=== PATIENT | male | born 1955 | race Two or more races ===

== ENCOUNTER → 2017-10-16 | Outpatient (CLI) | payer MEDICARE, BC ==
[2017-10-16 10:06] LABS: Basophils # (A) 0.1 k/uL (0-0.2); Basophils % (A) 1 %; Eosinophils # (A) 0.4 k/uL (0-0.7); Eosinophils % (A) 3 %; HCT 48.3 % (39.0-53.0); HGB 16.1 gm/dL (13.0-17.5); Lymphocytes # (A) 1.6 k/uL (1.0-4.8); Lymphocytes % (A) 12 %; MCH 33.3 pg (25.0-35.0); MCHC 33.4 g/dL (31.0-37.0); MCV 99.5 fL (80.0-100.0); Mean Platelet Volume 7.2; Monocytes # (A) 0.7 k/uL (0-1.0); Monocytes % (A) 5 %; Neutrophils # (A) 10.4 k/uL (1.3-7.7); Neutrophils % (A) 78 %; Platelet Count 240 k/uL (150-450); RBC 4.85 m/uL (4.30-5.90); RDW 14.5 % (11.5-15.5); WBC 13.4 k/uL (3.8-10.6)
[2017-10-16 10:23] LABS: Anion Gap 13 mmol/L; Blood Urea Nitrogen 11 mg/dL (9-20); Calcium 9.4 mg/dL (8.4-10.2); Carbon Dioxide 23 mmol/L (22-30); Chloride 107 mmol/L (98-107); Glucose 110 mg/dL (74-99); Potassium 4.2 mmol/L (3.5-5.1); Sodium 143 mmol/L (137-145)
== END | disposition home or self-care (01) ==
LOC: LABPAT 09:18
PROVIDERS: ATTEND Urology
DX: Z01.812 Encounter for preprocedural laboratory examination (principal); I10 Essential (primary) hypertension; N21.0 Calculus in bladder; R35.0 Frequency of micturition; Z79.899 Other long term (current) drug therapy
CPT/HCPCS: 36415; 80048; 85025; 87077; 87086; 87186

== ENCOUNTER 2017-10-23 09:05 | Day surgery (SDC) | payer MEDICARE, BC ==
[2017-10-17 12:52] VITALS: BMI 18.6
[~2017-10-23 09:05] MED LIST: AMPICILLIN 2,000 MG in SODIUM CHLORIDE 0.9% 100 ML IVPB STA; DEXAMETHASONE SOD PHOSPHATE 10 MG/ML 1 ML VIAL IV ONE; HYDROmorphone 0.5 MG/0.5 ML SYRINGE IVP PRN; LACTATED RINGERS 1,000 ML IV SCH; ONDANSETRON 4 MG/2 ML VIAL IVP ONE
[2017-10-23 09:41] VITALS: RESP 16
[2017-10-23] MEDS ORDERED: GENTAMICIN 80 MG in SODIUM CHLORIDE 0.9% 100 ML IVPB ONE (10:00)
[2017-10-23] MEDS ORDERED: LIDOCAINE 1% 20 ML VIAL (10MG/ML) FOR IV START INTRADERMA ONE (10:03)
[2017-10-23] MEDS ORDERED: ePHEDrine SULFATE/0.9% NACL/PF 50 MG/5 ML SYRINGE IV ONE (11:16)
[2017-10-23] MEDS ORDERED: LIDOCAINE 1% INJ 10MG/ML (20 ML MDV) ONE (11:16)
[2017-10-23] MEDS ORDERED: PROPOFOL 10 MG/ML 20 ML VIAL IV ONE (11:16)
[2017-10-23] MEDS ORDERED: MIDAZOLAM 2 MG/2 ML VIAL ONE (11:16)
[2017-10-23] MEDS ORDERED: fentaNYL (PF) 50 MCG/ML 2 ML AMP ONE (11:16)
[2017-10-23 12:09] VITALS: TEMP 97.7
[2017-10-23 13:12] VITALS: BP 149/77; PULSE 62
--- NOTE | 2017-10-23 16:46 | P.OP ---
Date of Procedure: 10/23/17 Preoperative Diagnosis: Bladder calculi Postoperative Diagnosis: Same Procedure(s) Performed: Cystoscopy with removal of bladder calculi Anesthesia: TESSY Surgeon: Jed Hahn Estimated Blood Loss (ml): 0 IV fluids (ml): 300 Pathology: other (Bladder calculi, sent for chemical analysis) Condition: stable Disposition: PACU Indications for Procedure: He is a 62-year-old male with multiple sclerosis. Recent renal ultrasound shows an echogenic structure within the bladder. Urodynamic study showed some uninhibiited contractions, and cystoscopy confirmed the presence of bladder calculi. He will undergo cystolithotripsy, and may benefit from resumption of antimuscarinic therapy following surgery. Operative Findings: Multiple small bladder calculi. Description of Procedure: The patient was taken to the operating room and placed in the dorsolithotomy position, with legs supported in Woo stirrups. The external genitalia was prepped and draped sterilely. The 30 lens was used to introduce the 19-Albanian Stortz cystoscopic sheath through the urethra and into the bladder under direct vision. The prostatic urethra showed no evidence of prostatic obstruction. The bladder was examined in its entirety. Both ureteral orifices were of normal anatomic location and configuration. No tumors were seen. Upon initially entering the bladder, the urine was noted to be quite cloudy. The bladder was filled and drained several times for irrigation. Once visualization was improved, multiple small bladder calculi were identified. These appeared to be struvite in composition. The bladder was filled and the beak of the cystoscope was advanced up to a calculus. With drainage, each calculus was removed from the bladder without the need for an Ellik evacuator. Once this was completed, the bladder was emptied and the cystoscope removed. The patient tolerated the procedure well was taken to the recovery room in stable condition.
[2017-10-24] MEDS ORDERED: ceFAZolin IN SWFI 2 GM/20 ML SYRINGE IVP ONE (06:00)
== END 2017-10-23 13:41 | disposition home or self-care (01) ==
LOC: OR 09:05
PROVIDERS: ATTEND Urology
DX: N21.0 Calculus in bladder (principal); Z80.52 Family history of malignant neoplasm of bladder; G35 Multiple sclerosis; I25.119 Atherosclerotic heart disease of native coronary artery with unspecified angina pectoris; I10 Essential (primary) hypertension; E78.00 Pure hypercholesterolemia, unspecified; Z72.0 Tobacco use; E78.2 Mixed hyperlipidemia; I25.2 Old myocardial infarction; Z86.14 Personal history of Methicillin resistant Staphylococcus aureus infection; Z95.5 Presence of coronary angioplasty implant and graft; M19.90 Unspecified osteoarthritis, unspecified site; G62.9 Polyneuropathy, unspecified; J45.909 Unspecified asthma, uncomplicated; Z85.828 Personal history of other malignant neoplasm of skin; Z79.2 Long term (current) use of antibiotics; Z79.02 Long term (current) use of antithrombotics/antiplatelets; Z79.82 Long term (current) use of aspirin; Z79.899 Other long term (current) drug therapy; Z88.8 Allergy status to other drugs, medicaments and biological substances
CPT/HCPCS: 82365; 52310; J2250; J1100; J2405; J2001; J3010; J1580; J0290; J2704

== ENCOUNTER → 2024-03-18 | Outpatient (CLI) | payer MEDICARE ==
--- NOTE | 2024-03-18 11:18 | CT ---
EXAMINATION TYPE: CT abdomen pelvis wo con DATE OF EXAM: 03/18/2024 COMPARISON: None CLINICAL INDICATION: Male, 68 years old with history of N39.0 URINARY TRACT INFECTION, SITE NOT SPECI FIED; PHH, uti TECHNIQUE: CT scan of the abdomen and pelvis is performed without oral or IV contrast. CT DLP: [address] CTDI: mGy Automated exposure control for dose reduction was used. FINDINGS: Within the limitations of a non-contrast study, the following observations are made. There is a thick bandlike density in the right lower lobe posteriorly which could represent chronic i nterstitial scarring. There is moderate cardiomegaly. There are multiple large gallstones within a contracted gallbladder. There is no biliary ductal dilat ation. There is no organomegaly of the liver, pancreas, spleen or adrenal glands. There are multiple nonobstructing right renal calcifications (approximately 5) the largest of which i s 8-9 mm. There are 2 nonobstructing 2 to 3 mm calcifications in the left kidney. There is an infrarenal abdominal aortic aneurysm which measures 3.2 cm in AP diameter. There is no re troperitoneal adenopathy. The bowel loops are normal in caliber is no evidence of obstruction. No inflammatory changes are iden tified in the mesentery and there is no free intraperitoneal air or fluid. Urinary bladder is distended. There are multiple calcifications including an 8 mm calcification in th e tiny right-sided urinary diverticulum. There are 3 adjacent calcifications in the bladder base appa rently within the gallbladder wall, the largest of which is 7.6 mm. There is mild to moderate prosta tic hypertrophy with marked prostatic calcification. No pelvic adenopathy, free fluid or abscess. The osseous structures and soft tissues are unremarkable. IMPRESSION: 1. Multiple large gallstones within a contracted gallbladder. 2. Multiple nonobstructing renal calcifications, right greater than left as described above. 3. Urinary bladder calcifications in urinary bladder diverticulum. See above. 4. Moderate prostatic hypertrophy with marked prosthetic location. 5. Distended urinary bladder raising the question of bladder outlet obstruction. [facility], , 03/18/2024 11:16 AM
== END | disposition home or self-care (01) ==
LOC: RADCTMAIN 09:58
PROVIDERS: ATTEND Urology
DX: N39.0 Urinary tract infection, site not specified (principal); K80.20 Calculus of gallbladder without cholecystitis without obstruction; N32.89 Other specified disorders of bladder; N40.0 Benign prostatic hyperplasia without lower urinary tract symptoms
CPT/HCPCS: 74176

== ENCOUNTER → 2024-04-16 | Outpatient (CLI) | payer MEDICARE ==
[2024-04-16 14:12] LABS: Amorphous Sediment,Urine Rare /hpf; Appearance,Urine Cloudy (Clear); Bacteria,Urine Rare /hpf; Bilirubin,Urine Negative (Negative); Blood,Urine Negative (Negative); Color,Urine Colorless; Glucose,Urine (UA) Negative (Negative); Ketones,Urine Negative (Negative); Leukocyte Esterase,Urine Large (Negative); Mucus,Urine Rare /hpf; Nitrite,Urine Positive (Negative); Protein,Urine Trace (Negative); RBC,Urine 2 /hpf (0-5); Specific Gravity,Urine 1.009 (1.001-1.035); Squamous Epithelial Cell,Urine <1 /hpf (0-4); Urobilinogen,Urine <2.0 mg/dL (<2.0); WBC,Urine 38 /hpf (0-5)
[2024-04-16 18:20] LABS: BUN/Creat Ratio 22.14 Ratio (12.00-20.00); Blood Urea Nitrogen 15.5 mg/dL (9.0-27.0); Calcium 9.4 mg/dL (8.7-10.3); Carbon Dioxide 27.9 mmol/L (21.6-31.8); Chloride 100 mmol/L (96-109); Glucose 133 mg/dL (70-110); Potassium 3.9 mmol/L (3.5-5.5); Sodium 140 mmol/L (135-145)
[2024-04-16 18:31] LABS: Basophils # (A) 0.07 X 10*3/uL (0.00-0.10); Basophils % (A) 0.7 %; Eosinophils # (A) 0.13 X 10*3/uL (0.04-0.35); Eosinophils % (A) 1.4 %; HCT 51.9 % (39.6-50.0); HGB 16.8 g/dL (13.0-17.0); Lymphocytes # (A) 1.65 X 10*3/uL (0.90-5.00); Lymphocytes % (A) 17.2 %; MCH 31.8 pg (27.0-32.0); MCHC 32.4 g/dL (32.0-37.0); MCV 98.1 FL (80.0-97.0); Mean Platelet Volume 11.2 FL (9.5-12.2); Monocytes # (A) 0.55 X 10*3/uL (0.20-1.00); Monocytes % (A) 5.7 %; NRBC Per 100 WBC 0 X 10*3/uL (0.00-0.01); Neutrophils # (A) 7.14 X 10*3/uL (1.80-7.70); Neutrophils % (A) 74.6 %; Platelet Count 193 X 10*3/uL (140-440); RBC 5.29 X 10*6/uL (4.40-5.60); RDW 14.8 % (11.5-14.5); WBC 9.58 X 10*3/uL (4.50-10.00)
== END | disposition home or self-care (01) ==
LOC: LABPAT 13:12
PROVIDERS: ATTEND Urology
DX: Z01.818 Encounter for other preprocedural examination (principal); N21.0 Calculus in bladder
CPT/HCPCS: 80048; 81001; 85025; 87077; 87086; 87186

== ENCOUNTER → 2024-04-22 | Day surgery (SDC) | payer MEDICARE ==
[~2024-04-22] MED LIST changes: -AMPICILLIN 2,000 MG in SODIUM CHLORIDE 0.9% 100 ML IVPB STA; -DEXAMETHASONE SOD PHOSPHATE 10 MG/ML 1 ML VIAL IV ONE; +GLYCOPYRROLATE 0.2 MG/ML 2 ML VIAL ONE; -LACTATED RINGERS 1,000 ML IV SCH; +LIDOCAINE 1% (10MG/ML) FOR IV START INTRADERMA PRN; +LIDOCAINE 1% INJ 10MG/ML (20 ML MDV) ONE; +MIDAZOLAM 2 MG/2 ML VIAL IV PRN; -ONDANSETRON 4 MG/2 ML VIAL IVP ONE; +PHENYLEPHRINE-0.9% NACL SYG 1,000 MCG/10 ML SYRINGE ONE; +PROPOFOL 10 MG/ML 20 ML VIAL IV ONE; +ePHEDrine 50 MG/ML 1 ML VIAL ONE; +fentaNYL (PF) 50 MCG/ML 2 ML AMP IVP PRN; +fentaNYL (PF) 50 MCG/ML 2 ML AMP ONE
--- NOTE | 2024-04-22 06:06 | P.GSHP ---
History of Present Illness H&P Date: 04/22/24 Chief Complaint: Recurrent UTI The patient is a 68-year-old white male who underwent cystolithotripsy in 2018. 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 CT scan shows bilateral renal calculi as well as bladder calculi measuring up to 8 mm in size. He now comes for cystoscopy with cystolithotripsy. - Constitutional Constitutional: Denies chills, Denies fever - Cardiovascular Cardiovascular: Reports irregular heart beat - Gastrointestinal Gastrointestinal: Denies nausea, Denies vomiting - Genitourinary (Male) Genitourinary: Reports hematuria Past Medical History Past Medical History: Coronary Artery Disease (CAD), Chest Pain / Angina, Hyperlipidemia, Hypertension, Myocardial Infarction ([place]) Additional Past Medical History / Comment(s): MULTIPLE SCLEROSIS, NEUROPATHY, UTI, Last Myocardial Infarction Date:: 2011 History of Any Multi-Drug Resistant Organisms: MRSA Date of last positivie culture/infection: unk MDRO Source:: BUTTocks Past Surgical History: Heart Catheterization With Stent, Hernia Repair, Orthopedic Surgery Additional Past Surgical History / Comment(s): RIGHT LEG HAS METAL MARISA , ARTHROSCOPIC KNEE RIGHT, MARSHA INGUINAL HERNIA REPAIRS,DECUBITI TO BUTTOCKS Past Anesthesia/Blood Transfusion Reactions: No Reported Reaction Date of Last Stent Placement:: 2011 Smoking Status: Current every day smoker - Past Family History Sister(s) Family Medical History: Cancer Father Family Medical History: Cancer, Congestive Heart Failure (CHF) Additional Family Medical History / Comment(s): HEVY SMOKER -EMPHYSEMA, THROAT CANCER/BLADDER CANCER. AT AGE 78 OF CHF Mother Additional Family Medical History / Comment(s): AT 87 WAS HEAVY SMOKER Medications and Allergies Home Medications Medication Instructions Recorded Confirmed Type Baclofen [Lioresal] 20 mg PO BID 03/30/14 04/20/24 History Gabapentin [Neurontin] 100 mg PO BID 03/30/14 04/20/24 History Isosorbide Mononitrate ER [Imdur] 30 mg PO DAILY 03/30/14 04/20/24 History Methylphenidate HCl [Ritalin LA] 30 mg PO BID 03/30/14 04/20/24 History amLODIPine BESYLATE [Norvasc] 10 mg PO DAILY 10/17/17 04/20/24 History lisinopriL [Zestril] 10 mg PO DAILY 10/17/17 04/20/24 History Apixaban [Eliquis] 5 mg PO BID 04/20/24 04/20/24 History Furosemide [Lasix] 20 mg PO DAILY 04/20/24 04/20/24 History Metoprolol Tartrate [Lopressor] 50 mg PO BID 04/20/24 04/20/24 History Rosuvastatin Calcium 10 mg PO DAILY 04/20/24 04/20/24 History Valium (Unk) 1 tab PO DAILY 04/20/24 04/20/24 History Allergies Allergy/AdvReac Type Severity Reaction Status Date / Time epinephrine [From Adrenalin] Allergy "PASSED Verified 04/20/24 16:06 OUT," AT AGE 9 epinephrine HCl Allergy "PASSED Verified 04/20/24 16:06 [From Adrenalin] OUT" Surgical - Exam - General well developed, well nourished, no distress - Respiratory normal respiratory effort - Psychiatric oriented to time, oriented to person, oriented to place, speech is normal, memory intact Results - Imaging CT scan - abdomen: report reviewed, image reviewed Assessment and Plan (1) Calculus in bladder Status: Acute Code(s): N21.0 - CALCULUS IN BLADDER SNOMED Code(s): 59330136 Plan: The patient is currently taking Bactrim DS for his Morganella UTI. He will undergo cystoscopy with cystolithotripsy, as the presence of bladder calculi may be the cause of his recurrent UTIs. He is aware of potential risks, which include anesthesia, bleeding, infection, bladder perforation, and postoperative urinary retention.
[2024-04-22] MEDS: IV FLUID CONTINUATION 1,000 ML IV ONE (08:36)
[2024-04-22] MEDS: LACTATED RINGERS 1,000 ML IV SCH (08:51)
[2024-04-22] MEDS: ONDANSETRON 4 MG/2 ML VIAL IVP ONE (08:51)
[2024-04-22] MEDS: DEXAMETHASONE SOD PHOSPHATE 4 MG/ML 1 ML VIAL IV ONE (08:51)
[2024-04-22] MEDS: FAMOTIDINE 20 MG/2 ML VIAL IV STA (08:52)
[2024-04-22] MEDS: LEVOFLOXACIN 500MG-D5W PMX 500 MG in DEXTROSE/WATER 1 100ML.BAG IVPB PRN (10:13)
--- NOTE | 2024-04-22 10:59 | P.OP ---
Date of Procedure: 04/22/24 Preoperative Diagnosis: Bladder calculi Postoperative Diagnosis: Same Procedure(s) Performed: Cystoscopy with removal of bladder calculi Anesthesia: TESSY Surgeon: Jed Hahn Estimated Blood Loss (ml): 0 IV fluids (ml): 500 Pathology: none sent Condition: stable Disposition: PACU Indications for Procedure: The patient is a 68-year-old white male who underwent cystolithotripsy in 2018. 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 CT scan shows bilateral renal calculi as well as bladder calculi measuring up to 8 mm in size. He now comes for cystoscopy with cystolithotripsy. Operative Findings: Considerable debris seen within the bladder. Several calculi measuring up to 4 mm in size were identified and removed. Description of Procedure: The patient was taken to the operating room and placed in the dorsal lithotomy position, with legs supported in Woo stirrups. The external genitalia was prepped and draped sterilely. The 30 lens was used to introduce the 21-Turkmen Longoria cystoscopic sheath through the urethra and into the bladder under direct vision. The urethra appeared normal. The prostate showed evidence of a partially obstructing high median bar. The bladder was examined in its entirety. The ureteral orifices appeared normal. Considerable debris was seen within the dependent portion of the bladder. The bladder was irrigated several times to remove this debris, along with several calculi measuring up to 3 to 4 mm in diameter. The bladder was inspected. No tumors were seen. No diverticuli were seen. A 16-Turkmen Bear catheter was placed. The return was clear. The patient tolerated the procedure well was taken to the recovery room in stable condition.
[2024-04-22 11:00] VITALS: TEMP 97
[2024-04-22 11:42] VITALS: RESP 14
[2024-04-22 12:10] VITALS: BP 120/68; PULSE 60
== END | disposition home or self-care (01) ==
LOC: OR 07:30
PROVIDERS: ATTEND Urology
DX: N21.0 Calculus in bladder (principal); Z87.440 Personal history of urinary (tract) infections; I10 Essential (primary) hypertension; E78.5 Hyperlipidemia, unspecified; G35 Multiple sclerosis; I25.10 Atherosclerotic heart disease of native coronary artery without angina pectoris; I25.2 Old myocardial infarction; G62.9 Polyneuropathy, unspecified; F17.210 Nicotine dependence, cigarettes, uncomplicated; Z79.899 Other long term (current) drug therapy; Z98.890 Other specified postprocedural states; Z95.5 Presence of coronary angioplasty implant and graft; Z79.01 Long term (current) use of anticoagulants; Z88.8 Allergy status to other drugs, medicaments and biological substances
CPT/HCPCS: 52310; C1769; J1100; J2405; J1956; J2003; J3010; J3490; J2704; J2371; J1596